=== PATIENT | female | born 1985 | race Caucasian/White ===

== ENCOUNTER → 2016-07-28 | Outpatient (CLI) | payer OTHER | LOC: M WUC 08:00 | PROVIDERS: ATTEND Nurse Practitioner Family | DX: R63.8 Other symptoms and signs concerning food and fluid intake (principal); F19.21 Other psychoactive substance dependence, in remission ==

== ENCOUNTER → 2016-07-31 | Outpatient (CLI) | payer OTHER ==
[2016-07-31 10:57] LABS: ALBUMIN 3.6 GM/DL (3.2-5.2); ALBUMIN/GLOBULIN RATIO 0.95 (1.00-1.93); ALKALINE PHOSPHATASE 78 U/L (45-117); ALT/SGPT 99 U/L (12-78); ANION GAP 9 MEQ/L (8-16); AST/SGOT 44 U/L (15-37); BILIRUBIN,TOTAL 0.4 MG/DL (0.2-1.0); BLOOD UREA NITROGEN 14 MG/DL (7-18); CALCIUM LEVEL 9.2 MG/DL (8.5-10.1); CARBON DIOXIDE LEVEL 25 MEQ/L (21-32); CHLORIDE LEVEL 107 MEQ/L (98-107); CHOLESTEROL LEVEL 163 MG/DL (<200); CREATININE FOR GFR 0.99 MG/DL (0.55-1.02); GLOMERULAR FILTRATION RATE > 60.0 (>60); GLUCOSE, FASTING 93 MG/DL (70-105); POTASSIUM SERUM 4.1 MEQ/L (3.5-5.1); SODIUM LEVEL 141 MEQ/L (136-145); TOTAL PROTEIN 7.4 GM/DL (6.4-8.2); TRIGLYCERIDES LEVEL 144 MG/DL (<150)
== END ==
LOC: M LAB 09:11
PROVIDERS: ATTEND Nurse Practitioner Family
DX: R63.8 Other symptoms and signs concerning food and fluid intake (principal); F19.21 Other psychoactive substance dependence, in remission

== ENCOUNTER → 2016-09-04 | Outpatient (REF) | payer BC, OTHER ==
[2016-09-04 12:50] LABS: HEPATITIS B SURFACE ANTIBODY NEGATIVE (POSITIVE)
[2016-09-06 08:06] LABS: ALT 153 IU/L (0-40); GGT 17 IU/L (0-60); HAPTOGLOBIN 75 mg/dL (34-200); HEPATITIS C QUANTITATION 46220 IU/mL (.); NECROINFLAM SCORE 0.66 (0.00-0.17); NECROINFLAMM GRADE A3-Severe activity (.); TOTAL BILIRUBIN 0.3 mg/dL (0.0-1.2)
[2016-09-14 14:13] LABS: HEPATITIS C GENOTYPE 1a (.)
== END | disposition home or self-care (01) ==
LOC: M SFHCPLAZ 09:42
PROVIDERS: ATTEND Internal Medicine Infectious Disease
DX: B18.2 Chronic viral hepatitis C (principal)

== ENCOUNTER → 2016-12-05 | Outpatient (REF) | payer OTHER ==
[2016-12-05 14:09] LABS: ALBUMIN 3.9 GM/DL (3.2-5.2); BILIRUBIN,DIRECT 0.1 MG/DL (0.0-0.2); BILIRUBIN,TOTAL 0.6 MG/DL (0.2-1.0); TOTAL PROTEIN 7.8 GM/DL (6.4-8.2)
[2016-12-07 10:17] LABS: HEPATITIS C QUANTITATION HCV Not Detected IU/mL (.)
== END ==
LOC: M SFHCPLAZ 08:13
PROVIDERS: ATTEND Internal Medicine Infectious Disease
DX: B18.2 Chronic viral hepatitis C (principal)

== ENCOUNTER → 2017-05-14 | Outpatient (REF) | payer OTHER ==
[2017-05-14 16:00] LABS: ALBUMIN/GLOBULIN RATIO 1.08 (1.00-1.93); ALKALINE PHOSPHATASE 97 U/L (45-117); ALT/SGPT 19 U/L (12-78); AST/SGOT 12 U/L (7-37); BILIRUBIN,DIRECT 0.1 MG/DL (0.0-0.2); BILIRUBIN,TOTAL 0.5 MG/DL (0.2-1.0); TOTAL PROTEIN 7.7 GM/DL (6.4-8.2)
[2017-05-17 08:06] LABS: HEPATITIS C QUANTITATION HCV Not Detected IU/mL (.)
== END ==
LOC: M SFHCPLAZ 12:34
DX: B18.2 Chronic viral hepatitis C (principal)

== ENCOUNTER 2017-09-06 02:56 | Emergency (ER) | payer MEDICAID, SELFPAY, OTHER ==
[2017-09-06] MEDS ORDERED: CETACAINE SPRAY 5GM As Ordered (05:33)
[2017-09-06] MEDS ORDERED: LIDOCAINE W/EPINEPHRINE 1% 20ML VIAL As Ordered (05:36)
[2017-09-06] MEDS: LIDOCAINE W/EPINEPHRINE 1% 20ML VIAL SC (05:45)
[2017-09-06] MEDS: BUPIVACAINE HCL 0.5% 30 ML VIAL SC (05:45)
[2017-09-06] MEDS: CETACAINE SPRAY 5GM TOP (05:52)
== END 2017-09-06 06:00 | disposition home or self-care (01) ==
LOC: M ED 02:56
DX: K08.89 Other specified disorders of teeth and supporting structures (principal); Z79.82 Long term (current) use of aspirin
CPT/HCPCS: 99283

== ENCOUNTER → 2018-04-29 | Outpatient (REF) | payer BC ==
[~2018-04-29] MED LIST: BAYE325T12 PO; CLEO150C PO; IBUP-1022 PO
== END ==
LOC: M LAB REF 09:50
PROVIDERS: ATTEND Physician Assistant
DX: R11.0 Nausea (principal)

== ENCOUNTER → 2018-06-28 | Outpatient (CLI) | payer BC ==
[2018-06-28 15:04] LABS: BASO % 0.4 % (0.0-1.0); EOS % 0.3 % (0.0-3.0); HEMATOCRIT 39.8 % (36.0-47.0); HEMOGLOBIN 12.6 g/dl (12.0-15.5); LYMPH # 2.2 10^3/uL (1.5-4.5); LYMPH % 28.7 % (24.0-44.0); MEAN CORPUSCULAR HEMOGLOBIN 28.5 pg (27.0-33.0); MEAN CORPUSCULAR HGB CONC 31.7 g/dl (32.0-36.5); MONO # 0.5 10^3/uL (0.0-0.8); MONO % 6.7 % (0.0-5.0); NEUTROPHILS # 4.8 10^3/uL (1.8-7.7); NEUTROPHILS % 63.6 % (36.0-66.0); PLATELET COUNT, AUTOMATED 255 10^3/uL (150-450); RED BLOOD COUNT 4.42 10^6/uL (4.00-5.40); WHITE BLOOD COUNT 7.5 10^3/uL (4.0-10.0)
[2018-06-28 15:29] LABS: ALBUMIN 4.1 GM/DL (3.2-5.2); ALT/SGPT 17 U/L (12-78); BILIRUBIN,TOTAL 0.5 MG/DL (0.2-1.0); BLOOD UREA NITROGEN 9 MG/DL (7-18); CALCIUM LEVEL 9.1 MG/DL (8.5-10.1); CARBON DIOXIDE LEVEL 31 MEQ/L (21-32); CHLORIDE LEVEL 104 MEQ/L (98-107); GLOMERULAR FILTRATION RATE > 60.0 (>60); GLUCOSE, FASTING 79 MG/DL (70-100); HCG, SERUM QUANTITATIVE < 1.0 MIU/ML; POTASSIUM SERUM 4.2 MEQ/L (3.5-5.1); SODIUM LEVEL 139 MEQ/L (136-145)
[2018-07-01 09:34] LABS: HEPATITIS B SURFACE ANTIBODY POSITIVE (POSITIVE)
[2018-07-01 09:41] LABS: HEPATITIS B SURFACE ANTIGEN NEGATIVE (NEGATIVE)
[2018-07-01 10:12] LABS: HEPATITIS A ANTIBODY IGM NEGATIVE (NEGATIVE)
[2018-07-01 10:15] LABS: HEPATITIS C VIRUS ABY INDEX > 11.0 INDEX (<0.8)
== END ==
LOC: M LAB 13:53
DX: F11.20 Opioid dependence, uncomplicated (principal)

== ENCOUNTER 2018-11-05 11:37 | Emergency (ER) | payer BC, MEDICAID, OTHER ==
[~2018-11-05] VITALS: Ht 165.1 cm; Wt 72.8 kg
[2018-11-05] MEDS ORDERED: NALOXONE INJ 2 MG/2 ML SYRINGE (J2310) IV STA (11:40)
[2018-11-05] MEDS ORDERED: NS 1,000 ML IV ONE (11:45)
--- NOTE | 2018-11-05 12:35 | ECGEPIP ---
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
[2018-11-05 13:59] LABS: AMPHETAMINES LEVEL URINE NEGATIVE (NEGATIVE); BARBITURATES URINE NEGATIVE (NEGATIVE); BENZODIAZEPINES URINE NEGATIVE (NEGATIVE); COCAINE METABOLITE URINE NEGATIVE (NEGATIVE); METHADONE URINE POSITIVE (NEGATIVE); OPIATES URINE NEGATIVE (NEGATIVE); PHENCYCLIDINE URINE NEGATIVE (NEGATIVE)
[2018-11-05 14:00] LABS: CANNABINOIDS URINE POSITIVE (NEGATIVE)
[2018-11-05 14:20] VITALS: BP 130/66
== END 2018-11-05 14:23 | disposition home or self-care (01) ==
LOC: M ED 11:37
DX: T50.904A Poisoning by unspecified drugs, medicaments and biological substances, undetermined, initial encounter (principal); R00.1 Bradycardia, unspecified; B19.20 Unspecified viral hepatitis C without hepatic coma; F11.20 Opioid dependence, uncomplicated; F19.10 Other psychoactive substance abuse, uncomplicated; F90.9 Attention-deficit hyperactivity disorder, unspecified type; Z79.2 Long term (current) use of antibiotics; Z79.82 Long term (current) use of aspirin; Z79.899 Other long term (current) drug therapy
CPT/HCPCS: 80307; 93005; 93041; 94760; 96361; 96374; 99285; J2310

== ENCOUNTER 2018-12-30 18:25 | Emergency (ER) | payer OTHER ==
[~2018-12-30] VITALS: Ht 162.6 cm; Wt 73.1 kg
[2018-12-30 18:25] VITALS: BP 124/68
[2018-12-30 19:18] LABS: BASO # 0.1 10^3/uL (0.0-0.2); BASO % 0.3 % (0.0-1.0); EOS % 0.2 % (0.0-3.0); HEMATOCRIT 40.2 % (36.0-47.0); HEMOGLOBIN 13.1 g/dl (12.0-15.5); LYMPH % 13.3 % (24.0-44.0); MEAN CORPUSCULAR HGB CONC 32.6 g/dl (32.0-36.5); MEAN CORPUSCULAR VOLUME 92.2 fl (80.0-96.0); MONO # 0.7 10^3/uL (0.0-0.8); NEUTROPHILS # 11.9 10^3/uL (1.5-8.5); NEUTROPHILS % 80.9 % (36.0-66.0); PLATELET COUNT, AUTOMATED 260 10^3/uL (150-450); RED BLOOD COUNT 4.36 10^6/uL (4.00-5.40); WHITE BLOOD COUNT 14.7 10^3/uL (4.0-10.0)
--- NOTE | 2018-12-30 21:44 | REPVR ---
PROCEDURE INFORMATION: Exam: US First Trimester, Transabdominal Exam date and time: 12/30/2018 8:52 PM Clinical history: 33 years old, female; Lmp or gestational age (in weeks): Unknkown lmp; Antepartum complications; Bleeding; ; Additional info: Vaginal bleeding TECHNIQUE: Imaging protocol: Real-time transabdominal obstetrical ultrasound of the maternal pelvis and a first trimester , less than 14 weeks 0 days, with image documentation. COMPARISON: No relevant prior studies available. FINDINGS: GESTATION: Gestation: Gestational sac within the uterus with pole. Heart rate: The heart beat of 120 beats per minute. Placenta: Unremarkable. No subchorionic bleed. BIOMETRY: Lipscomb-Rump length: The crown-rump length measures 6 mm suggesting an age of 6 weeks 3 days. The EDC is 08/22/2019. MATERNAL: Uterus: The uterus measures 9.1 cm in its cephalocaudad dimension and 5.0 x 6.1 cm in its AP and lateral dimensions. Cervix: Unremarkable. Right adnexa: The right ovary measures 2.3 x 3.0 x 2.8 cm and demonstrates arterial and venous blood flow. Left adnexa: The left ovary measures 2.2 x 3.3 x 1.6 cm and demonstrates arterial and venous blood flow. Intraperitoneal: No intraperitoneal free fluid. IMPRESSION: Early single live intrauterine fetus with an estimated age of 6 weeks 3 days. The EDC is 08/22/2019. Electronically signed by: Addy Morse On 12/30/2018 21:44:33 PM
== END 2018-12-30 22:29 | disposition home or self-care (01) ==
LOC: M ED 18:25
DX: O20.8 Other hemorrhage in early pregnancy (principal); O99.320 Drug use complicating pregnancy, unspecified trimester; Z3A.01 Less than 8 weeks gestation of pregnancy

== ENCOUNTER → 2019-01-27 | Outpatient (REF) | payer OTHER ==
[2019-01-29 11:07] LABS: RUBELLA IgG QUALITATIVE IMMUNE (IMMUNE)
== END ==
LOC: M LAB REF 16:20
PROVIDERS: ATTEND Nurse Practitioner Women's Health
DX: Z34.81 Encounter for supervision of other normal pregnancy, first trimester (principal); Z3A.00 Weeks of gestation of pregnancy not specified

== ENCOUNTER → 2019-02-25 | Outpatient (REF) | payer OTHER | LOC: M LAB REF 16:35 | PROVIDERS: ATTEND Obstetrics & Gynecology | DX: Z34.82 Encounter for supervision of other normal pregnancy, second trimester (principal); B18.2 Chronic viral hepatitis C ==

== ENCOUNTER → 2019-04-08 | Outpatient (CLI) | payer OTHER ==
--- NOTE | 2019-04-08 17:37 | REP ---
Clinical: Anatomical evaluation. Comparison: 12/30/2018 . Findings: Examination demonstrates a single live intrauterine in cephalic presentation. motion is identified by technologist. Placenta is noted posterior and grade zero without evidence for placenta previa or abruption. Amniotic fluid volume is normal. Cervix measures 3.6 cm in length and appears closed. Nuchal cord cannot be excluded Gestational age by LMP 20 weeks 4 days with TANI 08/22/2019 . Gestational age by current measurements 19 weeks 6 days with TANI is 08/27/2019 . FHR equals 143 beats per minute. BPD 4.5 cm 19 weeks 5 days HC 17.0 cm 19 weeks 4 days AC 14.3 cm 19 weeks 4 days FL 3.2 cm 20 weeks 0 days HL 3.0 cm 20 weeks 0 days HC/AC ratio 1.19 Estimated weight 314 grams ( 21st percentile). Anatomical assessment demonstrates normal structures including cranium, choroid plexus, cavum, cerebellum/posterior fossa, lungs, diaphragm, stomach, cord insertion/three-vessel cord, kidneys/bladder, spine, and extremities. Impression: 1. Single live intrauterine in cephalic presentation demonstrating appropriate interval growth. 2. Nuchal cord cannot be excluded. 3. Limited evaluation of the facial features and heart/ventricular outflow tracts may warrant reevaluation and follow-up. Electronically Signed by Neptali Sue MD 04/08/2019 05:29 P
== END ==
LOC: M RAD 15:43
PROVIDERS: ATTEND Obstetrics & Gynecology
DX: Z34.02 Encounter for supervision of normal first pregnancy, second trimester (principal); Z3A.20 20 weeks gestation of pregnancy

== ENCOUNTER → 2019-05-06 | Outpatient (CLI) | payer OTHER ==
--- NOTE | 2019-05-06 18:28 | REP ---
Clinical: Anatomical evaluation. Comparison: 04/08/2019 . Findings: Examination demonstrates a single live intrauterine in cephalic presentation. motion is identified by technologist. Placenta is noted posterior and grade I without evidence for placenta previa or abruption. Amniotic fluid volume is normal. Cervix measures 3.3 cm in length and appears closed. No evidence for nuchal cord. Gestational age by LMP 24 weeks 4 days with TANI 08/22/2019 . Gestational age by current measurements 23 weeks 4 days with TANI 08/29/2019 . FHR equals 143 beats per minute. Estimated weight 599 grams ( 14th percentile). Anatomical assessment demonstrates normal structures including facial features, four-chamber heart/ventricular outflow tracts. Impression: Single live intrauterine in cephalic presentation demonstrating appropriate interval growth. In conjunction with prior examination anatomical assessment is complete and normal. No gross abnormalities are identified. Electronically Signed by Neptali Sue MD 05/06/2019 06:20 P
== END ==
LOC: M RAD 16:11
PROVIDERS: ATTEND Obstetrics & Gynecology
DX: Z34.02 Encounter for supervision of normal first pregnancy, second trimester (principal); Z3A.24 24 weeks gestation of pregnancy

== ENCOUNTER → 2019-06-19 | Outpatient (CLI) | payer OTHER ==
[2019-06-19 09:16] LABS: HEMATOCRIT 30.6 % (36.0-47.0); HEMOGLOBIN 10.1 g/dl (12.0-15.5); MEAN CORPUSCULAR HEMOGLOBIN 30.5 pg (27.0-33.0); MEAN CORPUSCULAR VOLUME 92.4 fl (80.0-96.0); PLATELET COUNT, AUTOMATED 228 10^3/uL (150-450); RED BLOOD COUNT 3.31 10^6/uL (4.00-5.40); WHITE BLOOD COUNT 10.5 10^3/uL (4.0-10.0)
== END ==
LOC: M LAB 07:52
PROVIDERS: ATTEND Obstetrics & Gynecology
DX: Z34.92 Encounter for supervision of normal pregnancy, unspecified, second trimester (principal)

== ENCOUNTER → 2019-07-17 | Outpatient (REF) | payer OTHER | LOC: M LAB REF 12:42 | PROVIDERS: ATTEND Obstetrics & Gynecology | DX: Z34.03 Encounter for supervision of normal first pregnancy, third trimester (principal) ==

== ENCOUNTER 2019-08-16 14:18 | Emergency (ER) | payer OTHER ==
[~2019-08-16] VITALS: Ht 162.6 cm; Wt 74.6 kg
[2019-08-16 15:48] VITALS: BP 128/81
== END 2019-08-16 15:49 | disposition home or self-care (01) ==
LOC: M ED 14:18
DX: O99.343 Other mental disorders complicating pregnancy, third trimester (principal); F41.9 Anxiety disorder, unspecified; O98.413 Viral hepatitis complicating pregnancy, third trimester; B18.2 Chronic viral hepatitis C; Z3A.39 39 weeks gestation of pregnancy

== ENCOUNTER → 2022-09-22 | Outpatient (REF) | payer OTHER | LOC: EEVIPCON 11:07 → M LAB REF 11:07 | PROVIDERS: ATTEND Physician Assistant | DX: L02.415 Cutaneous abscess of right lower limb (principal) ==

== ENCOUNTER → 2024-01-24 | Outpatient (REF) | payer OTHER | LOC: M LAB REF 16:11 | PROVIDERS: ATTEND Physician Assistant Medical | DX: B34.9 Viral infection, unspecified (principal) ==

== ENCOUNTER 2024-10-09 18:40 | Emergency (ER) | payer OTHER ==
[~2024-10-09] VITALS: Ht 162.6 cm; Wt 87.0 kg
[~2024-10-09 18:40] MED LIST changes: -BAYE325T12 PO; +BAYE325T2 PO; -IBUP-1022 PO; +IBUP600T42 PO
[2024-10-09 18:42] VITALS: BP 133/82; TEMP 99.1; O2SAT 97
[2024-10-09] MEDS ORDERED: BENA25CA4 PO (18:47)
== END 2024-10-09 19:32 | disposition left against medical advice (07) ==
LOC: M ED 18:40
DX: Z53.21 Procedure and treatment not carried out due to patient leaving prior to being seen by health care provider (principal)